=== PATIENT | male | born 1960 | race Two or more races ===

== ENCOUNTER → 2020-07-19 | Outpatient (CLI) | payer OTHER ==
[~2020-07-19] MED LIST: CELE200C PO; CETI10CA11 PO; CRESTOR5 MG PO; CYAN500T17 PO; IOHEXOL 180 MG/ML 10 ML VIAL. ONE; LISI2.5T PO; MELA1TAB9 PO; METF10007 PO; OMEG1CAP27 PO; OMEP20CA16 PO; methylPREDNISolone ACETATE 40 MG/ML VIAL. ONE; methylPREDNISolone ACETATE 80 MG/ML VIAL. ONE; vitamin d3
--- NOTE | 2020-07-19 10:16 | PDOC1 ---
INITIAL PAIN CONSULT DATE OF SERVICE: DOS: DATE: 07/19/20 TIME: 10:04 CHIEF COMPLAINT: Chief Complaint: Low back and left lower extremity pain Neck and left upper extremity pain HISTORY OF PRESENT ILLNESS: 60-year-old male presents with history of pain low back left lower extremity for about 2 years worse over the past few months also pain in the base the neck and left upper extremity and shoulder. Patient reports is worse with walking standing changing positions in the low back rating the posterior gluteus posterior thigh some into the calf mostly the back of the knee patient report is worse at night wake is having sleep wake 2 times a night does not affect his bowel bladder control but does affect his ability to walk to a moderate extent patient has had previous physical therapy is also epidural injections radiofrequency ablation of lumbar spine and trigger points all which helped's fairly significant patient is doing exercise on his own now daily taking Celebrex as well as naproxen neither which is helping significantly patient por ts the pain is constant sharp stabbing throbbing shooting in the back as well as the neck and the shoulder radiating into the left lower extremity into the left arm to the bicep and triceps and into the elbow as well but not further. Patient had previous MRI scans as well as films in the past of the neck and the lumbar spine show degenerative changes throughout. Patient rates his disability rating 0-10 10 me the worst is a 9 with him home responsibilities 8 with recreation occupation sexual behavior and self-care 7 with life support activities and 6 with social activity. 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 PAST MEDICAL HISTORY: PMH: Arthritis, hypertension PREVIOUS SURGERIES: Past Surgical Hx: Right knee surgery for meniscal tear CURRENT MEDICATIONS: Current Meds: Active Scripts Medications Dose Route/Sig Max Daily Dose Days Date Category All Day Allergy (Cetirizine Hcl) 10 Mg Capsule 1 Cap PO DAILY 30 07/19/20 Reported Melatonin 1 Mg Tablet Unknown Dose PO HS 07/19/20 Reported B-12 (Cyanocobalamin (Vitamin B-12)) 500 Mcg Tablet Unknown Dose PO DAILY 07/19/20 Reported Metformin Hcl 1,000 Mg Tablet 1,000 Mg PO BIDWMEALS 07/19/20 Reported [vitamin d3] 2 Tab DAILY 07/19/20 Reported Lisinopril 2.5 Mg Tablet Unknown Dose PO DAILY 07/19/20 Reported Omeprazole 20 Mg Capsule. Unknown Dose PO BID 07/19/20 Reported Fish Oil 1,000 Mg Softgel (Blue Eye-3 Fatty Acids/Fish Oil) 1 Each Capsule 2 Each PO DAILY 07/19/20 Reported Crestor (Rosuvastatin Calcium) 5 Mg Tablet Unknown Dose PO HS 07/19/20 Reported Celebrex (Celecoxib) 200 Mg Capsule 1 Cap PO DAILY 07/19/20 Reported ALLERGIES; Allergies: Coded Allergies: No Known Drug Allergies (Unverified , 07/19/20) FAMILY HISTORY: Family Hx: Hypertension SOCIAL HISTORY: Social Hx: Patient is under alcohol does not smoke not using any illegal illicit recreational drugs is lives with his spouse has 3 boys living at home lives in [facility] and is a swimming coach for local high school REVIEW OF SYSTEMS: ROS: Positive for those items mentioned in history of present illness, all systems are reviewed, otherwise negative, is complete full and well-documented on patient's chart PHYSICAL EXAM: VS: Blood pressure is 121/83 pulse 73 respirations 18 temperature 98.0 F height is 70 inches weight is 204 pounds PE: PHYSICAL EXAMINATION: GENERAL: The patient is awake, alert, oriented, appropriate, very pleasant demeanor HEENT: Shows normocephalic, atraumatic. Extraocular movements are intact and symmetrical. Oral cavity: Mucous membranes moist and pink. Dentition is intact. NECK: Shows anterior throat supple without palpable lymphadenopathy noted. Swallow reflex symmetrical. CHEST: Shows normal on inspection. Breath sounds are clear bilaterally, no rales rhonchi or wheezes. HEART: Shows S1, S2 clear. No murmurs auscultated. ABDOMEN: Soft, nontender, nondistended. No palpable organomegaly is noted. No rebound or guarding demonstrated. BACK: Shows spine grossly in the midline. Normal-appearing cervical lordotic curvature. Cervical spine shows full rotation motion cervical spine but with some moderate tenderness with right lateral rotation past 45 degrees but performed fully with pain in the left shoulder and arm patient reports no pain with extension or flexion was performed fully as well. there is slightly increased thoracic kyphosis, some minor flattening of the lumbar lordotic curvature. Lumbar paraspinous muscles show symmetrical on inspection, on palpation shows some moderate tenderness diffusely throughout the upper, middle and lower distribution of the paraspinous muscles bilaterally and also into the lower thoracic paraspinous musculature, firm and tender, but without specific trigger points, without radiation of pain. The patient has good rotational motion of the lumbar spine, both laterally as well as extension and flexion without significant difficulty. No tenderness over the spinous processes, sacrum or sacroiliac regions. EXTREMITIES: Lower extremities show deep tendon reflexes 2+ in the patellar and tendo calcaneus tendons. Motor exam is 5 on a scale of 5 with right dorsiflexion, extension, quadriceps and hamstring flexion and 5/5 on the left. Peripheral pulses are 1+ posterior tibial. No peripheral edema is noted bilaterally. Lower extremities are warm and dry to touch, equal in color and appearance. Straight leg raise noted to be negative bilaterally. Gaenslen's and Jesús's maneuvers are negative as well. Upper extremities show deep tendon reflexes 2+ in the biceps and triceps tendons bilaterally, motor is strong with director of digital marketing strength biceps and triceps flexion and extension at 5 out of 5 and equal. Peripheral pulses are 2+ radial no peripheral edema bilaterally. the patient is able to stand, stand on his toes without significant difficulty or loss of balance walks with a normal-appearing gait not using any assistive devices to ambulate. SKIN: Shows warm and dry, good turgor. No edema. No sores, rashes or bruising throughout. IMPRESSION: Impression: 60-year-old male with history low back left lower extremity pain History of neck and left upper extremity pain MRI scans as noted History of arthritis History of hypertension Plan: Options were discussed with the patient including conservative medical management physical therapies and interventional techniques. Patient would like to pursue interventional techniques, we discussed a lumbar epidural steroid injection today using descriptions as well as anatomical models to describe the procedure. Risks were discussed including but not limited to: Bleeding, infection, possibility of epidural hematoma and subsequent neurological compromise, dural puncture, headaches, spinal cord and/or nerve damage, side effects of steroid medication, and poor results regarding pain control. Patient understands wished to proceed. Patient will return to clinic in possibly 2 weeks for follow-up was counseled as to return appointment activity level and side effects to be aware of. Procedure is lumbar epidural steroid injection under local anesthetic using sterile prep and drape at the L5-S1 level using C-arm fluoroscopic guidance in both AP and lateral views medications injected is 120 mg Depo-Medrol + 10 mL preservative-free normal saline and 2 mL contrast- condition at discharge is stable patient tolerated procedure well had no complications. BREANNE GAMING MD Jul 19, 2020 10:16
== END ==
LOC: PNCL 09:03
PROVIDERS: ATTEND Anesthesiology
DX: M54.5 Low back pain (principal); M54.2 Cervicalgia; M19.90 Unspecified osteoarthritis, unspecified site; I10 Essential (primary) hypertension; M79.605 Pain in left leg; M79.602 Pain in left arm; Z98.890 Other specified postprocedural states; Z82.49 Family history of ischemic heart disease and other diseases of the circulatory system; Z79.899 Other long term (current) drug therapy
CPT/HCPCS: 62323; J1030; J1040; Q9965

== ENCOUNTER → 2020-08-02 | Outpatient (CLI) | payer OTHER ==
--- NOTE | 2020-08-02 10:18 | PDOC ---
Progress Note - Pain Clinic Date of Service: DOS: DATE: 08/02/20 TIME: 10:13 Diagnosis: Dx: Lumbar radiculopathy with lumbar degenerative disease and lumbar and lumbosacral spondylosis Cervical radiculopathy with cervical degenerative disc disease History or Present Illness: HPI: 60-year-old male returns follow-up status post lumbar epidural steroid injection x1. Patient reports about 90% improvement for the first 3 to 4 days and the pain returning in the low back itself but not into the lower extremities at this time patient reports is worse with standing walking changing positions better with sitting or laying down does not awaken him from sleep at night most nights initially was doing much better with distance walking doing household activities work activities traveling with greater ease and comfort now the pain is returning but again is not in the lower extremities as it was. Patient reports swelling in the low back bilaterally essentially right equal to left. Patient chief complaint today is base of neck and shoulder pain left upper extremity. Patient reports its throbbing aching/tight in the base of the neck and left arm shooting into the left arm with radiating pain is coming more constant in the posterior deltoid posterior tricep and forearm patient points as a 9 on scale 10 is worse over the past week 8 on average 8 its least is an 8 today. Reports no loss of motor function no bowel or bladder incontinence or other complaints Physical Exam: VS: Blood pressure is 124/81 pulse 77 respirations are 16 temperature is 98.3 F height is 5 feet 10 inches weight is 205 pound PE: PHYSICAL EXAMINATION: GENERAL: The patient is awake, alert, oriented, appropriate, very pleasant demeanor HEENT: Shows normocephalic, atraumatic. Extraocular movements are intact and symmetrical. NECK: Shows anterior throat supple without palpable lymphadenopathy noted. Swallow reflex symmetrical. CHEST: Shows normal on inspection. Breath sounds are clear bilaterally. HEART: Shows S1, S2 clear. No murmurs auscultated. ABDOMEN: Soft, nontender, nondistended. No palpable organomegaly is noted. No rebound or guarding demonstrated. BACK: Shows spine grossly in the midline. Normal-appearing cervical lordotic curvature. Neck shows full rotation motion cervical spine with some moderate tenderness with far lateral rotation past 45 degrees on the left but not the right good extension full forward flexion without difficulty. Posterior cervical musculature shows symmetrical on inspection with palpation some moderate tenderness diffusely in the inferior aspect the cervical paraspinous muscles are on the left and into the superior medial trapezius on the left but nontender on the right. There is slightly increased thoracic kyphosis, some minor flattening of the lumbar lordotic curvature. Lumbar paraspinous muscles show symmetrical on inspection, on palpation shows some moderate tenderness diffusely throughout the upper, middle and lower distribution of the paraspinous muscles bilaterally, without specific trigger points, without radiation of pain. The patient has good rotational motion of the lumbar spine, with tenderness with extension only greater than 10 degrees and this is decreased with forward flexion at 45 degrees right and left lateral rotation show some moderate tenderness diffusely bilaterally at 10 degrees as well. No tenderness over the spinous processes, sacrum or sacroiliac regions. EXTREMITIES: Lower extremities show deep tendon reflexes 2+ in the patellar and tendo calcaneus tendons. Motor exam is 5 on a scale of 5 with right dorsiflexion, extension, quadriceps and hamstring flexion and 5/5 on the left. Peripheral pulses are 1+ posterior tibial. No peripheral edema is noted bilaterally. Lower extremities are warm and dry to touch, equal in color and appearance. Upper extremities show deep tendon reflexes 2+/4 in the biceps and triceps tendons motor exam is strong with sweatband flanger strength rated 5 out of 5 as is bicep and tricep flexion bilaterally. Shoulder shrug is strong and intact w ithout loss of strength on resistance with some minor pain in the base of the left shoulder this is true with abduction of the shoulder 90 degrees again without loss of strength on resistance. SKIN: Shows warm and dry, good turgor. No edema. No sores, rashes or bruising throughout. Procedure: Procedure: Options were discussed with the patient. Patient's old chart was reviewed his his current medication regimen updated current review of systems updated today as well. We will proceed with a cervical epidural steroid injection today with fluoroscopic guidance. Risks were discussed including but not limited to: Bleeding, infection, possibility of epidural hematoma and subsequent neurological compromise, dural puncture, headaches, spinal cord and/or nerve damage, side effects of steroid medication, and poor results regarding pain control. Patient understands wished to proceed. Patient will return to the clinic in approximate 2 weeks for follow-up was counseled as to return a ppointment activity level and side effects to be aware of. Medication Injected: Med Injected: Procedure cervical epidural steroid injection at the C6-7 level, using local anesthetic under sterile prep and drape using C-arm fluoroscopic guidance under local anesthesia medications injected ; 120 mg Depo-Medrol +[] mL normal saline and 2 mL contrast; condition at discharge is stable patient tolerated procedure well. and had no complications Condition at Discharge: Condition at Discharge: Edition at discharge is stable, patient tolerated procedure well and had no complications. BREANNE GAMING MD Aug 02, 2020 10:17
== END ==
LOC: PNCL 09:29
PROVIDERS: ATTEND Anesthesiology
DX: M51.16 Intervertebral disc disorders with radiculopathy, lumbar region (principal); M47.26 Other spondylosis with radiculopathy, lumbar region; M47.27 Other spondylosis with radiculopathy, lumbosacral region; M50.10 Cervical disc disorder with radiculopathy, unspecified cervical region; I10 Essential (primary) hypertension; Z79.899 Other long term (current) drug therapy
CPT/HCPCS: 62321; J1030; J1040; Q9965

== ENCOUNTER → 2020-08-23 | Outpatient (CLI) | payer OTHER ==
[~2020-08-23] MED LIST changes: +BUPIVACAINE MPF 0.25% 10 ML VIAL. ONE
--- NOTE | 2020-08-23 10:07 | PDOC ---
Progress Note - Pain Clinic Date of Service: DOS: DATE: 08/23/20 TIME: 10:03 Diagnosis: Dx: Lumbar degenerative disc disease with lumbar and lumbosacral spondylosis Cervical radiculopathy with cervical degenerative disc disease History or Present Illness: HPI: 60-year-old male returns follow-up status post lumbar epidural steroid injection x1 and cervical epidural steroid injection x1. Patient reports only some moderate pain decrease in each of the injections about 50% with a cervical injection however his chief complaint today is low back pain however in the bilateral areas of the low back without radiation to lower extremities at this time patient reports after the epidural injection he had a lumbar spine the lower leg pain is been much better but the pain in the back persists. Patient ports is a 9 on scale 10 is worse over the past week 8 on average 8 at its least is an 8 today patient reports is radiating constant aching sharp and tight across the low back worse with extension of the lumbar spine better with forward flexion better with sitting or laying down does awaken from sleep occasionally but not most nights he is also having some leg cramps. Patient ports pain is worse with standing walking changing positions patient with extension of the lumbar spine. Patient reports no new motor or sensory deficits no new bowel or bladder incontinence or other complaints. Physical Exam: VS: Blood pressure is 131/97 pulse 66 respiration 16 temperature 98.2 F height is 70 inches weight is 212 pounds PE: PHYSICAL EXAMINATION: GENERAL: The patient is awake, alert, oriented, appropriate, very pleasant demeanor HEENT: Shows normocephalic, atraumatic. Extraocular movements are intact and symmetrical. Oral cavity: Mucous membranes moist and pink. Dentition is intact. NECK: Shows anterior throat supple without palpable lymphadenopathy noted. Swallow reflex symmetrical. CHEST: Shows normal on inspection. Breath sounds are clear bilaterally, no rales rhonchi or wheezes. HEART: Shows S1, S2 clear. No murmurs auscultated. ABDOMEN: Soft, nontender, nondistended, obese. No palpable organomegaly is noted. No rebound or guarding demonstrated. BACK: Shows spine grossly in the midline. Normal-appearing cervical lordotic curvature. Cervical spine shows good rotation both laterally as well as full extension flexion without significant difficulty. There is slightly increased thoracic kyphosis, some minor flattening of the lumbar lordotic curvature. Lumbar paraspinous muscles show symmetrical on inspection, on palpation shows some moderate tenderness diffusely throughout the upper, middle and lower distribution of the paraspinous muscles bilaterally but without specific trigger points, without radiation of pain. The patient has good rotational motion of the lumbar spine, with a extension shows some significant tenderness in the low back bilaterally slightly worse on the left than the right but present bilaterally without radiation. Patient has good rotation both laterally greater than 10 degrees right and left with some moderate pain with both right and left rotation as well but not with forward flexion at 45 degrees which is performed without difficulty. No tenderness over the spinous processes, sacrum or sacroiliac regions. EXTREMITIES: Lower extremities show deep tendon reflexes 2+ in the patellar and tendo calcaneus tendons. Motor exam is 5 on a scale of 5 with right dorsiflexion, extension, quadriceps and hamstring flexion and 5/5 on the left. Peripheral pulses are 1+ posterior tibial. No peripheral edema is noted bilaterally. Lower extremities are warm and dry to touch, equal in color and appearance. SKIN: Shows warm and dry, good turgor. No edema. No sores, rashes or bruising throughout. Procedure: Procedure: Options were discussed with the patient. Patient chart was reviewed his his current medication regimen updated current review of systems updated today as well. We will proceed with bilateral lumbar L4-5 and L5-S1 facet joint injections today with fluoroscopic guidance. Risks were discussed including but not limited to: Bleeding, infection, possibility of epidural hematoma and subsequent neurological compromise, dural puncture, headaches, spinal cord and/or nerve damage, side effects of steroid medication, and poor results regarding pain control. Patient understands wished to proceed. Patient will return to clinic in approximate 2 weeks for follow-up, was counseled as to return appointment activity level and side effects to be aware of. Medication Injected: Med Injected: Under sterile prep and drape using C-arm fluoroscopic guidance AP and lateral and oblique views, bilateral L4-5 and L5-S1 facet joint injections, medications injected: 120 mg Depo-Medrol +4 cc 0.25% bupivacaine +2 cc contrast. Condition at discharge stable patient tolerated the procedure well and no complications. Condition at Discharge: Condition at Discharge: Condition at discharge is stable, patient tolerated procedure well and had no complications. BREANNE GAMNIG MD Aug 23, 2020 10:07
== END | disposition home or self-care (01) ==
LOC: PNCL 09:06
PROVIDERS: ATTEND Anesthesiology
DX: M51.36 Other intervertebral disc degeneration, lumbar region (principal); M47.817 Spondylosis without myelopathy or radiculopathy, lumbosacral region; M50.10 Cervical disc disorder with radiculopathy, unspecified cervical region; Z79.899 Other long term (current) drug therapy; Z79.84 Long term (current) use of oral hypoglycemic drugs; Z98.890 Other specified postprocedural states; Z88.8 Allergy status to other drugs, medicaments and biological substances
CPT/HCPCS: 64493; 64494; J1030; J1040; J3490; Q9965; 64635; 64636

== ENCOUNTER → 2020-09-19 | Outpatient (CLI) | payer OTHER ==
[~2020-09-19] MED LIST changes: -BUPIVACAINE MPF 0.25% 10 ML VIAL. ONE
--- NOTE | 2020-09-19 10:15 | PDOC ---
Progress Note - Pain Clinic Date of Service: DOS: DATE: 09/19/20 TIME: 10:10 Diagnosis: Dx: Cervical radiculopathy with cervical degenerative disc disease Lumbar degenerative disease with lumbar and lumbosacral spondylosis History or Present Illness: HPI: 60-year-old male returns follow-up status post cervical epidural to injection x2 August 02, 2020 and bilateral facet joint injections on August 23, 2020. Patient reports that his neck is doing better but still has significant pain in the base the neck and left shoulder and upper extremity low back did very well for about a week about 75 to 80% improvement but the pain returned after that time.. Patient chief complaint today is neck and left upper extremity pain patient rates is a 10 on scale 10 is worse over the past week 8 on average 8 its least is an 8 today patient ported aching sharp tight shooting tingling radiating becoming more constant and aggravating in the left upper extremity patient ports some fatigue of the lumbar level vertical motor loss. Patient reports initially was doing much better with household activities work activities travel with greater ease and comfort now the pain returning is awakening from sleep about every 2-3 hours in the left arm. Physical Exam: VS: Blood pressure is 117/75 pulse 75 respirations 16 temperature is 90.7 F weight is 212 pounds PE: PHYSICAL EXAMINATION: GENERAL: The patient is awake, alert, oriented, appropriate, very pleasant in demeanor HEENT: Shows normocephalic, atraumatic. Extraocular movements are intact and symmetrical. NECK: Shows anterior throat supple without palpable lymphadenopathy noted. Swallow reflex symmetrical. CHEST: Shows normal on inspection. Breath sounds are clear bilaterally. HEART: Shows S1, S2 clear. No murmurs auscultated. ABDOMEN: Soft, nontender, nondistended, obese. No palpable organomegaly is noted. No rebound or guarding demonstrated. BACK: Shows spine grossly in the midline. Normal-appearing cervical lordotic curvature. Neck shows cervical paraspinous muscular symmetrical on inspection with palpation shows moderate tenderness diffusely bilaterally in the middle and lower distribution paraspinous muscle slightly more on the left than the right but without radiation patient shows good rotation motion of the cervical spine both laterally greater than 45 degrees right and levels full extension full forward flexion without significant increase in pain. There is slightly increased thoracic kyphosis, some minor flattening of the lumbar lordotic curvature. Lumbar paraspinous muscles show symmetrical on inspection, on palpation shows some moderate tenderness diffusely throughout the upper, middle and lower distribution of the paraspinous muscles bilaterally and also into the lower thoracic paraspinous musculature, without radiation of pain. The patient has good rotational motion of the lumbar spine, both laterally as well as extension and flexion with some moderate tenderness with extension and right and left lateral rotation greater than 10 degrees no pain with forward flexion at 45 degrees. No tenderness over the spinous processes, sacrum or sacroiliac regions. EXTREMITIES: Upper extremities show deep tendon reflexes 2+ in the biceps and triceps tendons. Motor exam is 5 on a scale of 5 with right straddle carrier operator strength, biceps and triceps flexion and 5/5 on the left. Peripheral pulses are 2+ radial. No peripheral edema is noted bilaterally. Upper extremities are warm and dry to touch, equal in color and appearance. SKIN: Shows warm and dry, good turgor. No edema. No sores, rashes or bruising throughout. Procedure: Procedure: Options were discussed with the patient. Patient's old chart was reviewed his his current medication regimen updated current review of systems updated today as well. We will proceed with a third in the series cervical epidural steroid injection today with fluoroscopic guidance. Risks were discussed including but not limited to: Bleeding, infection, possibility of epidural hematoma and sub sequent neurological compromise, dural puncture, headaches, spinal cord and/or nerve damage, side effects of steroid medication, and poor results regarding pain control. Patient understands wished to proceed. Patient will return to clinic in approximate 2 weeks for follow-up was counseled as to return appointment activity level and side effects to be aware of. Medication Injected: Med Injected: Procedure cervical epidural steroid injection at the C6-7 level, using local an esthetic under sterile prep and drape using C-arm fluoroscopic guidance under local anesthesia medications injected ; 120 mg Depo-Medrol + 5 mL normal saline and 2 mL contrast; condition at discharge is stable patient tolerated procedure well. and had no complications Condition at Discharge: Condition at Discharge: Condition at discharge stable, patient tolerated the procedure well and had no complications. BREANNE GAMING MD Sep 19, 2020 10:15
== END | disposition home or self-care (01) ==
LOC: PNCL 09:07
PROVIDERS: ATTEND Anesthesiology
DX: M50.10 Cervical disc disorder with radiculopathy, unspecified cervical region (principal); M47.817 Spondylosis without myelopathy or radiculopathy, lumbosacral region; M51.36 Other intervertebral disc degeneration, lumbar region; Z79.899 Other long term (current) drug therapy; Z79.84 Long term (current) use of oral hypoglycemic drugs; Z98.890 Other specified postprocedural states
CPT/HCPCS: 62321; J1030; J1040; Q9965

== ENCOUNTER → 2020-10-08 | Outpatient (CLI) | payer OTHER ==
[~2020-10-08] MED LIST changes: +ACET500T68 PO; +BUPIVACAINE MPF 0.25% 10 ML VIAL. ONE; +LACT1CAP37 PO; +LISI20TA18 PO; +MELA1TAB44 PO; -MELA1TAB9 PO; +METF500T16 PO; +SILD100T PO; +TAMS0.4C97 PO; +TIZA4TAB2 PO; +TRAM50TA PO
--- NOTE | 2020-10-08 10:05 | PDOC ---
Progress Note - Pain Clinic Date of Service: DOS: DATE: 10/08/20 TIME: 10:02 Diagnosis: Dx: Lumbar degenerative disc disease with lumbar and lumbosacral spondylosis Cervical radiculopathy with cervical degenerative disc disease History or Present Illness: HPI: 60-year-old male returns follow-up status post cervical epidural steroid action x3. Patient ports initially did very well with the pain returns after about 75% improvement but the pain returning in the base the neck and left upper extremity after 3 injections. Patient ports still significant pain and headaches in the base the neck and left shoulder and arm also chief complaint is low back pain patient did very well after lumbar facet injections previously but the pain is returned now as well in the low back patient was about 75 to 80% improvement with the low back as well after the facet injections. Patient rates his pain as a 10 on scale 10 is worse over the past week 9 on average 9 is least is a 9 today patient ports pain is back is tingling radiating coming more constant across the low back not into the lower extremities patient reports aching sharp shooting pain base the neck and the left upper extremity which can be unbearable at times and again causing headaches. Patient reports no new motor or sensory deficits no new bowel or bladder incontinence. Physical Exam: VS: Blood pressure is 142/86 pulse 74 respirations 18 temp is 90.5 F height is 5 feet 10 inches weight is 218 pounds PE: PHYSICAL EXAMINATION: GENERAL: The patient is awake, alert, oriented, appropriate, very pleasant demeanor HEENT: Shows normocephalic, atraumatic. Extraocular movements are intact and symmetrical. Oral cavity: Mucous membranes moist and pink. NECK: Shows anterior throat supple without palpable lymphadenopathy noted. Swallow reflex symmetrical. CHEST: Shows normal on inspection. Breath sounds are clear bilaterally. HEART: Shows S1, S2 clear. No murmurs auscultated. ABDOMEN: Soft, nontender, nondistended, obese. No palpable organomegaly is noted. No rebound or guarding demonstrated. BACK: Shows spine grossly in the midline. Normal-appearing cervical lordotic curvature. Cervical paraspinous muscles show symmetrical inspection on palpation some moderate tenderness diffusely bilaterally diffusely without significant radiation. There is slightly increased thoracic kyphosis, some minor flattening of the lumbar lordotic curvature. Lumbar paraspinous muscles show symmetrical on inspection, on palpation shows some moderate tenderness diffusely throughout the upper, middle and lower distribution of the paraspinous muscles without specific trigger points, without radiation of pain. The patient has good rotational motion of the lumbar spine, both laterally as well as extension and flexion without significant difficulty. No tenderness over the spinous processes, sacrum or sacroiliac regions. EXTREMITIES: Lower extremities show deep tendon reflexes 2+ in the patellar and tendo calcaneus tendons. Motor exam is 5 on a scale of 5 with right dorsiflexion, extension, quadriceps and hamstring flexion and 5/5 on the left. Peripheral pulses are 1+ posterior tibial. No peripheral edema is noted bilaterally. Lower extremities are warm and dry to touch, equal in color and appearance. Upper extremities show deep tendon reflexes 2+ in the bicep and triceps tendons, motor exam is strong with 5 out of 5 track grinder strength biceps and triceps flexion. SKIN: Shows warm and dry, good turgor. No edema. No sores, rashes or bruising throughout. Procedure: Procedure: Patient discussed with the patient. Patient's old chart was reviewed his current medication regimen updated current review of systems updated today as well. We will proceed with bilateral L4-5 and L5-S1 facet joint injections today with fluoroscopic guidance. Risks were discussed including but not limited to: Bleeding, infection, possibility of epidural hematoma and subsequent neurological compromise, dural puncture, headaches, spinal cord and/or nerve damage, side effects of steroid medication, and poor results regarding pain control. Patient understands wished to proceed. Patient will return to clinic in approximate 2 weeks for follow-up, was counseled as to return appointment activity level and side effects be aware of. We also discussed possible radiofrequency ablation as he is done well with this in the past. Regarding patient's cervical radiculopathy will make referral for surgical evaluation regarding left cervical radiculopathy. Medication Injected: Med Injected: Under sterile prep and drape using C-arm fluoroscopic guidance AP and lateral and oblique views, bilateral L4-5 and L5-S1 facet joint injections were performed, medications injected: 120 mg Depo-Medrol +4 cc 0.25% bupivacaine +2 cc contrast. Condition at discharge stable patient tolerated the procedure well and no complications. Condition at Discharge: Condition at Discharge: Condition at discharge is stable, patient tolerated procedure well and had no complications. BREANNE GAMING MD Oct 08, 2020 10:05
== END | disposition home or self-care (01) ==
LOC: PNCL 09:10
PROVIDERS: ATTEND Anesthesiology
DX: M51.36 Other intervertebral disc degeneration, lumbar region (principal); M47.816 Spondylosis without myelopathy or radiculopathy, lumbar region; M50.10 Cervical disc disorder with radiculopathy, unspecified cervical region; Z98.890 Other specified postprocedural states
CPT/HCPCS: 64635; 64636; J1030; J1040; J3490; Q9965

== ENCOUNTER → 2021-01-15 | Outpatient (CLI) | payer OTHER ==
[~2021-01-15] MED LIST changes: -IOHEXOL 180 MG/ML 10 ML VIAL. ONE; +LACT1CAP29 PO; -LACT1CAP37 PO; +LIDOCAINE 1% PF 2 ML VIAL. ONE; +LIDOCAINE 2% PF 5 ML VIAL. ONE
--- NOTE | 2021-01-15 14:40 | PDOC ---
Progress Note - Pain Clinic Date of Service: DOS: DATE: 01/15/21 TIME: 14:36 Diagnosis: Dx: Lumbar degenerative disease lumbar and lumbosacral spondylosis Cervical radiculopathy with cervical degenerative disc disease History or Present Illness: HPI: 60-year-old male returns for follow-up status post bilateral L4-5 and L5-S1 facet medial branch blocks x2. Patient reports good improvement of the pain about 75 to 80% after the last injection now only about 50% improved but the first few days was doing much better patient reports now pain is returned across the low back bilaterally somewhat worse on the left than the right but present bilaterally without radiation to the lower extremity significantly. Patient reports still some pain in the base of the neck and shoulder in the left arm as he had previously we had scheduled for radiofrequency ablation of the lumbar medial branches today bilaterally. Patient reports pain is tingling and stabbing aching sharp shooting across the back constant severe and also the pain in the neck is radiating down the left upper extremity and the left arm patient reports is a 10 on scale 10 is worse over the past week 9 on average 9 its least is a 9 today in the low back. Patient reports no new motor or sensory deficits no bladder incontinence or other complaints. Patient reports he is recently had an evaluation with the neurosurgeon at his [facility] who is recommending conservative therapy for his neck and radicular pain in the left arm as well. Physical Exam: VS: Blood pressure is 122/86 pulse 85 respirations 18 temperature 90.3 F weight is 214 pounds PE: PHYSICAL EXAMINATION: GENERAL: The patient is awake, alert, oriented, appropriate, very pleasant demeanor patient accompanied by his spouse HEENT: Shows normocephalic, atraumatic. Extraocular movements are intact and symmetrical. Oral cavity: Mucous membranes moist and pink. Dentition is intact. NECK: Shows anterior throat supple without palpable lymphadenopathy noted. Swallow reflex symmetrical. CHEST: Shows normal on inspection. Breath sounds are clear bilaterally, no rales or rhonchi. HEART: Shows S1, S2 clear. No murmurs auscultated. ABDOMEN: Soft, nontender, nondistended, obese. No palpable organomegaly is noted. BACK: Shows spine grossly in the midline. Normal-appearing cervical lordotic curvature. There is slightly increased thoracic kyphosis, some minor flattening of the lumbar lordotic curvature. Lumbar paraspinous muscles show symmetrical on inspection, on palpation shows some moderate tenderness diffusely throughout the upper, middle and lower distribution of the paraspinous muscles without specific trigger points, without radiation of pain. The patient has good rotational motion of the lumbar spine, both laterally with tenderness greater than 10 degrees rotation left greater than right also with extension significant tenderness with axial loading of the lumbar spine but without radiation to the lower extremities forward flexion is performed at 45 degrees without significant increase in pain. No tenderness over the spinous processes, sacrum or sacroiliac regions. EXTREMITIES: Lower extremities show deep tendon reflexes 2+ in the patellar and tendo calcaneus tendons. Motor exam is 5 on a scale of 5 with right dorsiflexion, extension, quadriceps and hamstring flexion and 5/5 on the left. Peripheral pulses are 1+ posterior tibial. No peripheral edema is noted bilaterally. Lower extremities are warm and dry to touch, equal in color and appearance. Upper extremity show deep tendon reflexes at 2+ in the bicep and tricep tendons motor exam is strong with stone engraver strength rated at 5 out of 5 and equal bilaterally. Peripheral pulses are 2+ radial no peripheral edema in the upper extremities as well. SKIN: Shows warm and dry, good turgor. No edema. No sores, rashes or bruising throughout. Procedure: Procedure: Options were discussed with the patient. Patient chart reviews his current medication regimen updated current review of systems updated today as well. We will proceed with bilateral L4-5 and L5-S1 level medial branch radiofrequency ablation today with fluoroscopic guidance. Risks were discussed including but not limited to: Bleeding, infection, possibility of epidural hematoma and subsequent neurological compromise, dural puncture, headaches, spinal cord and/or nerve damage, side effects of steroid medication, potential thermal damage of the surrounding structures as well as permanent ischemic damage to motor nerves, and poor results regarding pain control. Patient understands and wished to proceed. Return to the clinic in approximate 2 weeks for follow-up, was counseled as to return appointment activity level and side effects to be aware of. Medication Injected: Med Injected: Under sterile prep and drape patient in prone position using C-arm fluoroscopic guidance patient's lumbar spine was visualized in both AP oblique and lateral views using 1% lidocaine to topically anesthetize the areas overlying the L3-4, L4-5 and L5-S1 facet joints at the point of the medial branches. Using a 22- gauge insulated radiofrequency needle with curved tips and stylette, the needles were advanced to contact the region of the facet with the medial branch targets. This was repeated at the L3-4 L4-5 and L5-S1 levels. Stylette was removed and using radiofrequency probe inserted into each needle individually at each level and then motor tested with no motor stimulation of the lower extremity. Patient did have some multifidus musculature contraction in the lumbar spine only but without radiation. At this time 1 cc of 2% lidocaine was then injected in each needle after motor testing but prior to radiofrequency ablation. Needle position was confirmed continuously throughout the radiofrequency ablation with both AP oblique and lateral views at each level. At this time radiofrequency ablation was carried out each level for 60 seconds at 80 C x 2 at each level with the tip of the needle turned 90 degrees after the first 60 seconds and then subsequent 60 seconds of radiofrequency ablation. Once radiofrequency ablation was completed solution containing 0.25% bupivacaine 1 cc and 20 mg Depo-Medrol was injected each level. Needle was then withdrawn. The procedure was repeated for the contralateral side as described as well. Patient had no paresthesias throughout the procedure no radiation of pain into the lower extremities no lower extremity motor response with motor testing bilaterally. Please see radiofrequency flowsheet for levels, temperatures, impedance, etc. Condition at Discharge: Condition at Discharge: Condition at discharge stable, patient tolerated the procedure well and had no complications. BREANNE GAMING MD Jan 15, 2021 14:40
== END | disposition home or self-care (01) ==
LOC: PNCL 12:57
PROVIDERS: ATTEND Anesthesiology
DX: M51.36 Other intervertebral disc degeneration, lumbar region (principal); M50.10 Cervical disc disorder with radiculopathy, unspecified cervical region; M47.817 Spondylosis without myelopathy or radiculopathy, lumbosacral region; Z79.84 Long term (current) use of oral hypoglycemic drugs; Z79.899 Other long term (current) drug therapy
CPT/HCPCS: 64635; 64636; J1030; J1040; J3490

== ENCOUNTER → 2021-02-04 | Outpatient (CLI) | payer OTHER ==
[~2021-02-04] MED LIST changes: -BUPIVACAINE MPF 0.25% 10 ML VIAL. ONE; +IOHEXOL 180 MG/ML 10 ML VIAL. ONE; -LIDOCAINE 1% PF 2 ML VIAL. ONE; -LIDOCAINE 2% PF 5 ML VIAL. ONE
--- NOTE | 2021-02-04 09:06 | PDOC ---
Progress Note - Pain Clinic Date of Service: DOS: DATE: 02/04/21 TIME: 09:02 Diagnosis: Dx: Cervical radiculopathy with cervical degenerative disc disease Lumbar degenerative disc disease with lumbar and lumbosacral spondylosis History or Present Illness: HPI: 60-year-old male returns for follow-up status post bilateral lumbar L4-5 and L5- S1 medial branch radiofrequency ablation on January 15, 2021. Patient reports doing very well with greater than 50% improvement in his back is feeling much better with activity daily activity standing walking doing work activities household activities patient reports "everything is better". Patient reports his main complaint is base the neck pain and left shoulder and upper extremity pain is been treated this previously with cervical epidural steroid injections most recently September of last year patient reports he did fairly well with this with about 50% improvement at that time as well also causing headaches on the left side of the neck and shoulder with radiating pain into the posterior d eltoid posterior triceps and into the forearm as well patient reports that sharp and tight tingling and shooting burning in the base the neck radiating to left arm patient reports no symptoms on the right side patient reports wakes him from sleep occasionally but not most nights now his back is doing better he is sleeping better as well. Patient reports no new motor or sensory deficits no bowel or bladder incontinence or other complaints. Patient reports pain is a 10 on scale 10 is the past week 8 on average 8 its least is an 8 today. Physical Exam: VS: Blood pressure is 110/73 pulse 69 respiration 16 temperature 98.0 F weight 211 pounds PE: PHYSICAL EXAMINATION: GENERAL: The patient is awake, alert, oriented, appropriate, very pleasant demeanor HEENT: Shows normocephalic, atraumatic. Extraocular movements are intact and sy mmetrical. Oral cavity: Mucous membranes moist and pink. Dentition is intact. NECK: Shows anterior throat supple without palpable lymphadenopathy noted. Swallow reflex symmetrical. CHEST: Shows normal on inspection. Breath sounds are clear bilaterally. HEART: Shows S1, S2 clear. No murmurs auscultated. ABDOMEN: Soft, nontender, nondistended, obese. No palpable organomegaly is noted. BACK: Shows spine grossly in the midline. Normal-appearing cervical lordotic curvature. Cervical spine shows good rotation motion both laterally well extension flexion without significant difficulty posterior cervical musculature show symmetrical on inspection with palpation some moderate tenderness diffusely more in the inferior aspect of the left cervical paraspinous posterior as well as the superior medial trapezius on the left side but without trigger points without atrophy or hypertrophy. There is slightly increased thoracic kyphosis, some minor flattening of the lumbar lordotic curvature. Lumbar paraspinous muscles show symmetrical on inspection, on palpation shows some moderate tenderness diffusely throughout the upper, middle and lower distribution of the paraspinous muscles bilaterally and also into the lower thoracic paraspinous musculature, firm and tender, but without specific trigger points, without radiation of pain. The patient has good rotational motion of the lumbar spine, both laterally as well as extension and flexion without significant difficulty. No tenderness over the spinous processes, sacrum or sacroiliac regions. EXTREMITIES: Lower extremities show deep tendon reflexes 2+ in the patellar and tendo calcaneus tendons. Motor exam is 5 on a scale of 5 with right dorsiflexion, extension, quadriceps and hamstring flexion and 5/5 on the left. Peripheral pulses are 1+ posterior tibial. No peripheral edema is noted bilaterally. Lower extremities are warm and dry to touch, equal in color and appearance. Upper extremity show deep tendon reflexes 2+ in the bicep and triceps tendons, motor exam strong with mumps developer strength rated 5 out of 5 as is bicep and tricep flexion bilaterally. Peripheral pulses are 2+ radial no peripheral edema is noted. SKIN: Shows warm and dry, good turgor. No edema. No sores, rashes or bruising throughout. Procedure: Procedure: Options were discussed with the patient. Patient chart reviews her current medication regimen updated current review of systems updated today as well. We will proceed with a cervical epidural steroid injections today as a first in the series with fluoroscopic guidance. Risks were discussed including but not limited to: Bleeding, infection, possibility of epidural hematoma and subsequent neurological compromise, dural puncture, headaches, spinal cord and/or nerve damage, side effects of steroid medication, and poor results regarding pain control. Patient understands and wished to proceed. Patient will return to the clinic in approximate 2 weeks for follow-up, was counseled as to return appointment activity level and side effects to be aware of. Medication Injected: Med Injected: Procedure cervical epidural steroid injection at the C6-7 level, using local anesthetic under sterile prep and drape using C-arm fluoroscopic guidance under local anesthesia medications injected ; 120 mg Depo-Medrol + 5 mL normal saline and 2 mL contrast; condition at discharge is stable patient tolerated procedure well. and had no complications Condition at Discharge: Condition at Discharge: Condition at discharge is stable, patient already procedure well had no complications. BREANNE GAMING MD Feb 04, 2021 09:06
--- NOTE | 2021-02-04 09:06 | PDOC4 ---
PROCEDURE Procedure Patient was consented for cervical epidural steroid injection. Risks were d iscussed including but not limited to: Bleeding, infection, possibility of epidural hematoma and subsequent neurological compromise, dural puncture, headaches, spinal cord and/or nerve damage, side effects of steroid medication, and poor results regarding pain control. Patient understands and wished to proceed. Procedure cervical epidural steroid injection at the C6-7 level, using local anesthetic under sterile prep and drape using C-arm fluoroscopic guidance under local anesthesia medications injected ; 120 mg Depo-Medrol + 5 mL normal saline and 2 mL contrast; condition at discharge is stable patient tolerated procedure well. and had no complications BREANNE GAMING MD Feb 04, 2021 09:06
== END | disposition home or self-care (01) ==
LOC: PNCL 08:28
PROVIDERS: ATTEND Anesthesiology
DX: M50.10 Cervical disc disorder with radiculopathy, unspecified cervical region (principal); M51.36 Other intervertebral disc degeneration, lumbar region; M47.26 Other spondylosis with radiculopathy, lumbar region; Z79.84 Long term (current) use of oral hypoglycemic drugs; Z79.899 Other long term (current) drug therapy
CPT/HCPCS: 62321; J1030; J1040; Q9965

== ENCOUNTER → 2022-01-16 | Outpatient (CLI) | payer OTHER ==
[~2022-01-16] MED LIST changes: +DEXAMETHASONE PRES.FREE 10 MG/ML VIAL. ONE; -LACT1CAP29 PO; +LACT1CAP37 PO; -LISI2.5T PO; +LISI2.5T12 PO; +TIZA-75 PO; -TIZA4TAB2 PO; -methylPREDNISolone ACETATE 40 MG/ML VIAL. ONE; -methylPREDNISolone ACETATE 80 MG/ML VIAL. ONE
--- NOTE | 2022-01-16 14:57 | PDOC4 ---
Procedure Note: ICD 10 Code: ICD 10 Code: M54.12 M50.30 Procedure Note: Patient was consented for cervical epidural steroid injection with fluoroscopic guidance. Risks were discussed including but not limited to: Bleeding, infection, possibility of epidural hematoma and subsequent neurological compromise, dural puncture, headaches, spinal cord and/or nerve damage, side effects of steroid medication, and poor results regarding pain control. Patient understands and wished to proceed. Procedure cervical epidural steroid injection at the C6-7 level, using local anesthetic under sterile prep and drape using C-arm fluoroscopic guidance under local anesthesia medications injected ; 20 mg dexamethasone +5 mL normal saline and 2 mL contrast; condition at discharge is stable patient tolerated procedure well. and had no complications BREANNE GAMING MD Jan 16, 2022 14:57
--- NOTE | 2022-01-16 14:57 | PDOC ---
Progress Note - Pain Clinic Date of Service: DOS: DATE: 01/16/22 TIME: 14:49 Diagnosis: Dx: Cervical radiculopathy with cervical degenerative disc disease History or Present Illness: HPI: 61-year-old male returns last seen 2020 after cervical epidural steroid injection he did very well patient reports about 90% improvement for several months pain returning now over the past 2 to 3 months in the base the neck and left upper extremity patient reports to radiate into the left deltoid posteriorly as well as laterally as well as into the triceps and into the biceps into the forearm and to the hand and fingers mostly the thumb and the first and second fingers with some numbness and tingling as well in the scapula as well as into the shoulder and the arm to the hand and fingers patient reports no loss of motor function but significant fatigability with the left upper extremity with repetitive motions reaching over his head with his left arm patient reports is a 10 on scale 10 is worse over the past week 8 on average 8 its least is an 8 today patient scribes aching and sharp tight and shooting stabbing and constant worse with repetitive motions worse with reaching forward with weightbearing and lifting and flexion of the elbow. Patient reports is better with resting or supporting his arm on the arm of a chair or couch also does not generally awaken him from sleep at night. Patient reports aching sharp tight and shooting in the arm and hand as well without any loss of motor function patient is [id number]. Physical Exam: VS: Blood pressure is 137/93 pulse 76 respirations 18 temperature 98.6 F height 5 feet 10 inches weight is 209 pounds. PE: PHYSICAL EXAMINATION: GENERAL: The patient is awake, alert, oriented, appropriate, very pleasant in demeanor HEENT: Shows normocephalic, atraumatic. Extraocular movements are intact and symmetrical. Oral cavity: Mucous membranes moist and pink. Dentition is intact. NECK: Shows anterior throat supple without palpable lymphadenopathy noted. Swallow reflex symmetrical. CHEST: Shows normal on inspection. Breath sounds are clear bilaterally, no rales rhonchi or wheezes auscultated. HEART: Shows S1, S2 clear. No murmurs auscultated. ABDOMEN: Soft, nontender, nondistended. No palpable organomegaly is noted. BACK: Shows spine grossly in the midline. Normal-appearing cervical lordotic curvature. Cervical paraspinous muscles show symmetrical inspection, on palpation some moderate tenderness diffusely bilaterally diffusely without s ignificant radiation. Patient shows good rotation of motion cervical spine with some mild guarding with left lateral rotation past 45 degrees but performs fully to 90 degrees full forward flexion and full extension without significant pain reported. There is slightly increased thoracic kyphosis, some minor flattening of the lumbar lordotic curvature. EXTREMITIES: Upper extremities show deep tendon reflexes 2+ in the biceps and triceps tendons. Motor exam is 5 on a scale of 5 with right utility worker, biceps and triceps flexion and 5/5 on the left. Peripheral pulses are 2+ posterior tibial. No peripheral edema is noted bilaterally. Upper extremities are warm and dry to touch, equal in color and appearance. Shoulder shrug strong intact without loss of strength on resistance bilaterally as is abduction shoulders 90 degrees bilaterally without loss of strength on resistance. SKIN: Shows warm and dry, good turgor. No edema. No sores, rashes or bruising throughout. Procedure: Procedure: Options were discussed with the patient. Patient's old chart was reviewed his current medication regimen updated current review of systems updated today as well. We will proceed with a cervical epidural steroid injection today with fluoroscopic guidance. Risks were discussed including but not limited to: Bleeding, infection, possibility of epidural hematoma and subsequent neurological compromise, dural puncture, headaches, spinal cord and/or nerve damage, side effects of steroid medication, and poor results regarding pain control. Patient understands and wished to proceed. Patient will return to clinic in approximately 2 weeks for follow-up, was counseled as to return appointment, activity level, and side effect to be aware of. Medication Injected: Med Injected: Procedure cervical epidural steroid injection at the C6-7 level, using local an esthetic under sterile prep and drape using C-arm fluoroscopic guidance under local anesthesia medications injected ; 20 mg dexamethasone +5 mL normal saline and 2 mL contrast; condition at discharge is stable patient tolerated procedure well. and had no complications Condition at Discharge: Condition at Discharge: Condition at discharge stable, patient Lion the procedure well and had no complications. BREANNE GAMING MD Jan 16, 2022 14:57
== END | disposition home or self-care (01) ==
LOC: PNCL 13:51
PROVIDERS: ATTEND Anesthesiology
DX: M50.10 Cervical disc disorder with radiculopathy, unspecified cervical region (principal); M54.12 Radiculopathy, cervical region; Z79.899 Other long term (current) drug therapy; Z98.890 Other specified postprocedural states
CPT/HCPCS: 62321; J1100; Q9965